=== PATIENT | male | born 1985 | race Caucasian/White ===

== ENCOUNTER 2018-02-11 19:59 | Emergency (ER) | payer SELFPAY ==
--- NOTE | 2018-02-11 20:27 | EDM.PDOC ---
ED HPI GENERAL MEDICAL PROBLEM - General Chief Complaint: ENT Problem Stated Complaint: EAR PAIN Time Seen by Provider: 02/11/18 20:14 Source of Information: Reports: Patient History Limitations: Reports: No Limitations - History of Present Illness INITIAL COMMENTS - FREE TEXT/NARRATIVE: The patient presents with left ear pain. He was putting a Q-tip in his ear yesterday and he felt pain after that. He has continued to have pain. He has no fever or chills. He has no sore throat or cough. Onset: Sudden Duration: Day(s): (Yesterday) Location: Reports: Other (Left ear) Quality: Reports: Sharp Severity: Moderate Improves with: Reports: None Worsens with: Reports: None Associated Symptoms: Reports: No Other Symptoms Left Ear Pain Score (Numeric/FACES): 3 - Related Data Allergies Allergy/AdvReac Type Severity Reaction Status Date / Time No Known Allergies Allergy Verified 02/11/18 20:15 Home Meds: Home Meds Ofloxacin 10 drop EARLF DAILY #20 ml 02/11/18 [Rx] Past Medical History - Past Health History Medical/Surgical History: Denies Medical/Surgical History Social & Family History - Tobacco Use Smoking Status *Q: Never Smoker - Caffeine Use Caffeine Use: Reports: Coffee - Recreational Drug Use Recreational Drug Use: No ED ROS ENT - Review of Systems Review Of Systems: See Below Constitutional: Reports: No Symptoms HEENT: Reports: Ear Pain (Left) Respiratory: Reports: No Symptoms Cardiovascular: Reports: No Symptoms Endocrine: Reports: No Symptoms GI/Abdominal: Reports: No Symptoms ED EXAM, ENT - Physical Exam Exam: See Below Exam Limited By: No Limitations General Appearance: Alert, No Apparent Distress Ears: Other (Mild pain upon palption to the front of the ear. Moderate edema to the ear canal with erythema and some drainage.) Course - Vital Signs Last Recorded V/S: Last Vital Signs Temp 99.6 F 02/11/18 20:13 Pulse 103 H 02/11/18 20:13 Resp 18 02/11/18 20:13 BP 137/78 02/11/18 20:13 Pulse Ox 95 02/11/18 20:13 Departure - Departure Time of Disposition: 20:25 Disposition: Home, Self-Care 01 Condition: Good Clinical Impression: Otitis externa Qualifiers: Otitis externa type: unspecified type Chronicity: acute Laterality: left Qualified Code(s): H60.502 - Unspecified acute noninfective otitis externa, left ear - Discharge Information *PRESCRIPTION DRUG MONITORING PROGRAM REVIEWED*: No *COPY OF PRESCRIPTION DRUG MONITORING REPORT IN PATIENT SPRING: No Prescriptions: Ofloxacin 10 drop EARLF DAILY #20 ml Instructions: Ear Drops, Adult, Otitis Externa, [id number] Referrals: PCP,None [Primary Care Provider] - Radha Mariano PA-C [Physician Temporary Data Entry Clerk] - 1 Week Additional Instructions: Put 10 drops in the left ear daily. Put the drops in your ear while laying on your side and stay there for about 10 minutes to let if go into your ear. Take tylenol or motrin for pain. Please return if you are worse.
== END 2018-02-11 20:34 | disposition home or self-care (01) ==
LOC: JD.ED 19:59
DX: H60.502 Unspecified acute noninfective otitis externa, left ear (principal)
CPT/HCPCS: 99283

== ENCOUNTER 2019-11-25 19:18 | Emergency (ER) | payer SELFPAY ==
[2019-11-25] MEDS ORDERED: Dexamethasone 10 MG/ML SDV IM ONE (19:55)
[2019-11-25] MEDS ORDERED: HYDROmorphone 0.5 MG/0.5 ML Syringe IM ONE (19:55)
--- NOTE | 2019-11-25 20:00 | EDM.PDOC ---
ED HPI GENERAL MEDICAL PROBLEM - General Chief Complaint: Lower Extremity Injury/Pain Stated Complaint: right foot pain Time Seen by Provider: 11/25/19 19:30 Source of Information: Reports: Patient, RN Notes Reviewed History Limitations: Reports: No Limitations - History of Present Illness INITIAL COMMENTS - FREE TEXT/NARRATIVE: Patient is a 34-year-old male who presents to the ED for evaluation of his right foot pain. Patient states that he was at work, but he is not sure if he was bitten by anything or got injured at work somehow. He denies any trauma to the area he did not drop any sort of equipment on his foot. Patient notes that the foot just became red, swollen, and warm to the touch. Patient's not felt pain like this before ever, does not have a history of gout. He did take 4 tablets of Tylenol this morning for pain management, but this did not seem to help much. He states it is very difficult to move his toes due to the swelling in his foot, but denies any numbness or tingling distal to the injury. Patient denies any other past medical history, and denies any other sick-like symptoms, fever/chills, cough/shortness of breath, nausea/vomiting/diarrhea. Right Feet Pain Score (Numeric/FACES): 6 - Related Data Allergies Allergy/AdvReac Type Severity Reaction Status Date / Time No Known Allergies Allergy Verified 11/25/19 19:31 Home Meds: Home Meds Acetaminophen/oxyCODONE [Percocet 325-5 MG] 1 each PO Q6H PRN #20 tab 11/25/19 [Rx] predniSONE 20 mg PO ASDIRECTED #15 tab 11/25/19 [Rx] Past Medical History - Past Health History Medical/Surgical History: Denies Medical/Surgical History Social & Family History - Tobacco Use Smoking Status *Q: Never Smoker - Caffeine Use Caffeine Use: Reports: Coffee - Recreational Drug Use Recreational Drug Use: No Review of Systems - Review of Systems Review Of Systems: Comprehensive ROS is negative, except as noted in HPI. ED EXAM, GENERAL - Physical Exam Exam: See Below Exam Limited By: No Limitations General Appearance: Alert, WD/WN, No Apparent Distress Respiratory/Chest: No Respiratory Distress, Lungs Clear, Normal Breath Sounds, No Accessory Muscle Use, Chest Non-Tender Cardiovascular: Normal Peripheral Pulses, Regular Rate, Rhythm, No Murmur GI/Abdominal: Normal Bowel Sounds, Soft, Non-Tender, No Distention, No Mass Extremities: Normal Capillary Refill, Limited Range of Motion (of toes on right food d/t dorsal swelling), Increased Warmth (to dorsum of right foot), Redness (to dorsum of right foot), Other (tenderness to dorsum of right foot) Neurological: Alert, Oriented, Normal Cognition, No Motor/Sensory Deficits Psychiatric: Normal Affect, Normal Mood Skin Exam: Warm, Dry, Intact, No Rash, Erythema (to dorsum of right foot, this area does appear to be inflamed, tender and warm to the touch. There are no areas that look to appear like an insect bite or central punctation.) Course - Vital Signs Last Recorded V/S: Last Vital Signs Temp 97.8 F 11/25/19 19:29 Pulse 94 11/25/19 19:29 Resp 16 11/25/19 19:29 BP 151/87 H 11/25/19 19:29 Pulse Ox 94 L 11/25/19 19:29 - Orders/Labs/Meds Labs: Laboratory Tests 11/25/19 11/25/19 Range/Units 20:03 20:03 WBC 13.04 H (4.23-9.07) K/mm3 RBC 4.95 (4.63-6.08) M/mm3 Hgb 14.2 (13.7-17.5) gm/dl Hct 43.1 (40.1-51.0) % MCV 87.1 (79.0-92.2) fl MCH 28.7 (25.7-32.2) pg MCHC 32.9 (32.2-35.5) g/dl RDW Std Deviation 46.9 H (35.1-43.9) fL Plt Count 262 (163-337) K/mm3 MPV 10.6 (9.4-12.3) fl Neut % (Auto) 70.6 H (34.0-67.9) % Lymph % (Auto) 21.5 L (21.8-53.1) % [place] % (Auto) 6.5 (5.3-12.2) % Eos % (Auto) 1.0 (0.8-7.0) Baso % (Auto) 0.2 (0.1-1.2) % Neut # (Auto) 9.21 H (1.78-5.38) K/mm3 Lymph # (Auto) 2.81 (1.32-3.57) K/mm3 [place] # (Auto) 0.85 H (0.30-0.82) K/mm3 Eos # (Auto) 0.13 (0.04-0.54) K/mm3 Baso # (Auto) 0.02 (0.01-0.08) K/mm3 Sodium 139 (136-145) mEq/L Potassium 3.6 (3.5-5.1) mEq/L Chloride 104 (98-107) mEq/L Carbon Dioxide 25 (21-32) mEq/L Anion Gap 13.6 (5-15) BUN 13 (7-18) mg/dL Creatinine 1.1 (0.7-1.3) mg/dL Est Cr Clr Drug Dosing 84.58 mL/min Estimated GFR (MDRD) > 60 (>60) mL/min BUN/Creatinine Ratio 11.8 L (14-18) Glucose 108 H (74-106) mg/dL Uric Acid 6.7 (3.5-7.2) mg/dL Calcium 9.0 (8.5-10.1) mg/dL Total Bilirubin 0.5 (0.2-1.0) mg/dL AST 18 (15-37) U/L ALT 40 (16-63) U/L Alkaline Phosphatase 108 (46-116) U/L Total Protein 8.1 (6.4-8.2) g/dl Albumin 3.8 (3.4-5.0) g/dl Globulin 4.3 gm/dL Albumin/Globulin Ratio 0.9 L (1-2) Meds: Medications Discontinued Medications Generic Name Dose Route Start Last Admin Trade Name Freq PRN Reason Stop Dose Admin Dexamethasone 10 mg 11/25/19 19:55 11/25/19 20:07 Dexamethasone IM 11/25/19 19:56 10 mg ONETIME ONE Administration Hydromorphone HCl 0.5 mg 11/25/19 19:55 11/25/19 20:07 Dilaudid IM 11/25/19 19:56 0.5 mg ONETIME ONE Administration - Re-Assessments/Exams Free Text/Narrative Re-Assessment/Exam: 07/02/20 20:00 Patient presents to the ED for evaluation of his right foot pain. Due to the sudden onset of this, highly suggestive of gout, but he is worried about infection at this time and does request some labs, so we will get a uric acid a CBC and a CMP for further evaluation. Patient will be given IM Dilaudid and IM dexamethasone for initial management. 11/25/19 20:40 Patient's white blood cell count is mildly elevated at 13.04 with 70% neutrophils. On auto differential uric acid is within normal limits at 6.7, metabolic panel is unremarkable. Due to the sudden onset of this, the amount of swelling and pain the patient is having I do believe the clinical course is more consistent with gout, patient will be given a prednisone taper, and some pain medication, with the strict instructions to follow-up with another provider if things are not getting much better in a day or 2 or if the redness starts spreading up his leg. Departure - Departure Time of Disposition: 20:43 Disposition: Home, Self-Care 01 Condition: Good Clinical Impression: Gout attack Qualifiers: Gout site: foot Gout etiology: unspecified cause Laterality: right Qualified Code(s): M10.9 - Gout, unspecified - Discharge Information *PRESCRIPTION DRUG MONITORING PROGRAM REVIEWED*: Yes *COPY OF PRESCRIPTION DRUG MONITORING REPORT IN PATIENT SPRING: No Instructions: Low-Purine Eating Plan Referrals: PCP,None [Primary Care Provider] - Forms: ED Department Discharge Additional Instructions: You were evaluated in the ER today regarding your right foot pain. This is consistent with a clinical course of gout, you have been given some pain meds and anti-inflammatories in the ER and this did seem to help provide pretty good relief of your symptoms at tonight's visit. You will be started on prednisone, and a pain medication, please take the prednisone as directed. You were given a prescription for a strong pain medication, oxycodone/acetaminophen 5/325, please take 1 tab every 6 hours as needed for pain not relieved by Tylenol or ibuprofen alone. Please note this medication does contain Tylenol in it, so do not take more than 4000 mg in a 24-hour time span. These medications can be addictive, so please take as few as possible to achieve adequate pain control. These meds can also be quite constipating, recommend that you increase your oral fluid intake and take a stool softener like MiraLAX while taking these medications. Do not drive while taking this medication. If your symptoms do not seem to be getting much better in roughly 72 hours or the redness starts spreading up your leg rather than getting better as expected, recommend you have the area reassessed by another care provider. There is no sign of a bacterial infection made evident by tonight's visit. Please return to the ER at any time if your symptoms change or worsen. Sepsis Event Note (ED) - Evaluation Sepsis Screening Result: No Definite Risk - Focused Exam Vital Signs: Vital Signs Temp Pulse Resp BP Pulse Ox 11/25/19 19:29 97.8 F 94 16 151/87 H 94 L
== END 2019-11-25 20:57 | disposition home or self-care (01) ==
LOC: JD.ED 19:18
DX: M10.9 Gout, unspecified (principal)
CPT/HCPCS: 36415; 80053; 84550; 85025; 96372; 99283; J1100; J1170

== ENCOUNTER 2019-11-29 16:06 | Inpatient (IN) | payer SELFPAY ==
--- NOTE | 2019-11-29 16:20 | EDM.PDOC ---
ED HPI GENERAL MEDICAL PROBLEM - General Chief Complaint: Lower Extremity Injury/Pain Stated Complaint: RT FOOT SWOLLEN AND 1 TOE BLEEDING Time Seen by Provider: 11/29/19 16:19 Source of Information: Reports: Patient History Limitations: Reports: No Limitations - History of Present Illness INITIAL COMMENTS - FREE TEXT/NARRATIVE: Patient is an unfortunate 34-year-old male who presents emergency department today with complaint of pain swelling and tenderness to his right foot. Patient reports that symptoms started 5 days ago he was seen here 4 days ago for same at which time the patient was diagnosed with gout. Patient at that time had a WBC of 13,000, patient reports he has had increasing pain and swelling to the his right foot he has erythema over the dorsum of his right foot and he has purulent drainage between the third and fourth toes in the interdigital space which is foul-smelling at this time, patient reports he does not know if he was stung by an insect but denies any trauma no fever no chills no cough no congestion no shortness of breath patient reports he has pain at rest pain is worse with palpation or ambulation improves with rest but never alleviates Right Foot Pain Score (Numeric/FACES): 9 - Related Data Allergies Allergy/AdvReac Type Severity Reaction Status Date / Time No Known Allergies Allergy Verified 11/29/19 16:19 Home Meds: Home Meds Acetaminophen/oxyCODONE [Percocet 325-5 MG] 1 each PO Q6H PRN #20 tab 11/25/19 [Rx] predniSONE 20 mg PO ASDIRECTED #15 tab 11/25/19 [Rx] Past Medical History - Past Health History Medical/Surgical History: Denies Medical/Surgical History Social & Family History - Caffeine Use Caffeine Use: Reports: Coffee Review of Systems - Review of Systems Review Of Systems: See Below Constitutional: Denies: Chills, Fever Musculoskeletal: Reports: Foot Pain, Other (swelling erythema) ED EXAM, GENERAL - Physical Exam Exam: See Below Exam Limited By: No Limitations General Appearance: Alert, WD/WN, Moderate Distress Ears: Normal External Exam, Normal Canal, Hearing Grossly Normal, Normal TMs Head: Atraumatic, Normocephalic Neck: Normal Inspection, Supple, Non-Tender, Full Range of Motion Respiratory/Chest: No Respiratory Distress, Lungs Clear, Normal Breath Sounds, No Accessory Muscle Use, Chest Non-Tender Cardiovascular: Normal Peripheral Pulses, Regular Rate, Rhythm, No Edema, No Gallop, No JVD, No Murmur, No Rub GI/Abdominal: Normal Bowel Sounds, Soft, Non-Tender, No Organomegaly, No Distention, No Abnormal Bruit, No Mass Back Exam: Normal Inspection, Full Range of Motion, NT Extremities: Other (Patient has moderate erythema over the dorsum of his right foot that extends to his midfoot he has) Course - Vital Signs Last Recorded V/S: Last Vital Signs Temp 97.7 F 11/29/19 16:17 Pulse 69 11/29/19 16:17 Resp 16 11/29/19 16:17 BP 143/98 H 11/29/19 16:17 Pulse Ox 99 11/29/19 16:17 - Orders/Labs/Meds Orders: Active Orders 24 hr Category Date Time Status Foot Comp Min 3V Rt [CR] Stat Exams 11/29/19 17:22 Taken CBC WITH AUTO DIFF [HEME] Stat Lab 11/29/19 16:52 Results CULTURE ANAEROBIC + SMEAR [RM] Routine Lab 11/29/19 16:15 Received CULTURE BLOOD [BC] Stat Lab 11/29/19 16:52 Received CULTURE BLOOD [BC] Stat Lab 11/29/19 17:05 Received UA RFX LUCIANO AND CULT IF INDIC [URIN] Stat Lab 11/29/19 16:25 Ordered Sodium Chloride 0.9% [Saline Flush] Med 11/29/19 16:25 Active 10 ml FLUSH ASDIRECTED PRN Blood Culture x2 Reflex Set [OM.PC] Stat Oth 11/29/19 16:25 Ordered Saline Lock Insert [OM.PC] Stat Oth 11/29/19 16:25 Ordered Medication Orders Sodium Chloride (Saline Flush) 10 ml FLUSH ASDIRECTED PRN PRN Reason: Keep Vein Open Last Admin: 11/29/19 16:58 Dose: 10 ml Documented by: YANNA Labs: Laboratory Tests 11/29/19 11/29/19 11/29/19 Range/Units 16:52 16:52 17:05 WBC 18.85 H (4.23-9.07) K/mm3 RBC 5.33 (4.63-6.08) M/mm3 Hgb 15.0 (13.7-17.5) gm/dl Hct 46.9 (40.1-51.0) % MCV 88.0 (79.0-92.2) fl MCH 28.1 (25.7-32.2) pg MCHC 32.0 L (32.2-35.5) g/dl RDW Std Deviation 48.0 H (35.1-43.9) fL Plt Count 330 (163-337) K/mm3 MPV 10.8 (9.4-12.3) fl Neut % (Auto) 52.9 (34.0-67.9) % Lymph % (Auto) 39.1 (21.8-53.1) % [place] % (Auto) 6.9 (5.3-12.2) % Eos % (Auto) 0.5 L (0.8-7.0) Baso % (Auto) 0.2 (0.1-1.2) % Neut # (Auto) 9.97 H (1.78-5.38) K/mm3 Lymph # (Auto) 7.37 H (1.32-3.57) K/mm3 [place] # (Auto) 1.31 H (0.30-0.82) K/mm3 Eos # (Auto) 0.09 (0.04-0.54) K/mm3 Baso # (Auto) 0.03 (0.01-0.08) K/mm3 Sodium 138 (136-145) mEq/L Potassium 3.6 (3.5-5.1) mEq/L Chloride 101 (98-107) mEq/L Carbon Dioxide 29 (21-32) mEq/L Anion Gap 11.6 (5-15) BUN 11 (7-18) mg/dL Creatinine 0.9 (0.7-1.3) mg/dL Est Cr Clr Drug Dosing TNP Estimated GFR (MDRD) > 60 (>60) mL/min BUN/Creatinine Ratio 12.2 L (14-18) Glucose 87 (74-106) mg/dL Lactic Acid 0.9 (0.4-2.0) mmol/L Calcium 8.7 (8.5-10.1) mg/dL Total Bilirubin 0.2 (0.2-1.0) mg/dL AST 17 (15-37) U/L ALT 50 (16-63) U/L Alkaline Phosphatase 100 (46-116) U/L Total Protein 8.2 (6.4-8.2) g/dl Albumin 3.5 (3.4-5.0) g/dl Globulin 4.7 gm/dL Albumin/Globulin Ratio 0.7 L (1-2) Meds: Medications Generic Name Dose Route Start Last Admin Trade Name Freq PRN Reason Stop Dose Admin Sodium Chloride 10 ml 11/29/19 16:25 11/29/19 16:58 Saline Flush FLUSH 10 ml ASDIRECTED PRN Administration Keep Vein Open Discontinued Medications Generic Name Dose Route Start Last Admin Trade Name Freq PRN Reason Stop Dose Admin Piperacillin Sod/Tazobactam 100 mls @ 200 mls/hr 11/29/19 17:28 11/29/19 17:44 Sod 4.5 gm/ Sodium Chloride IV 11/29/19 17:57 200 mls/hr ONETIME ONE Administration - Re-Assessments/Exams Free Text/Narrative Re-Assessment/Exam: 11/29/19 18:[address] Aranda excepts patient into observation status Departure - Departure Time of Disposition: 18:53 Disposition: Refer to Observation Clinical Impression: Cellulitis of right foot - Discharge Information Referrals: PCP,None [Primary Care Provider] - Forms: ED Department Discharge Sepsis Event Note (ED) - Focused Exam Vital Signs: Vital Signs Temp Pulse Resp BP Pulse Ox 11/29/19 16:17 97.7 F 69 16 143/98 H 99 - My Orders Last 24 Hours: My Active Orders 11/29/19 16:15 CULTURE ANAEROBIC + SMEAR [RM] Routine 11/29/19 16:25 UA RFX LUCIANO AND CULT IF INDIC [URIN] Stat Sodium Chloride 0.9% [Saline Flush] 10 ml FLUSH ASDIRECTED PRN Blood Culture x2 Reflex Set [OM.PC] Stat Saline Lock Insert [OM.PC] Stat 11/29/19 16:52 CBC WITH AUTO DIFF [HEME] Stat CULTURE BLOOD [BC] Stat 11/29/19 17:05 CULTURE BLOOD [BC] Stat 11/29/19 17:22 Foot Comp Min 3V Rt [CR] Stat - Assessment/Plan Last 24 Hours: My Active Orders 11/29/19 16:15 CULTURE ANAEROBIC + SMEAR [RM] Routine 11/29/19 16:25 UA RFX LUCIANO AND CULT IF INDIC [URIN] Stat Sodium Chloride 0.9% [Saline Flush] 10 ml FLUSH ASDIRECTED PRN Blood Culture x2 Reflex Set [OM.PC] Stat Saline Lock Insert [OM.PC] Stat 11/29/19 16:52 CBC WITH AUTO DIFF [HEME] Stat CULTURE BLOOD [BC] Stat 11/29/19 17:05 CULTURE BLOOD [BC] Stat 11/29/19 17:22 Foot Comp Min 3V Rt [CR] Stat
[2019-11-29] MEDS ORDERED: Sodium Chloride 0.9% 10 ML Syringe FLUSH PRN (16:25)
[2019-11-29] MEDS ORDERED: Piperacillin/Tazobactam 4.5 GM in Sodium Chloride 0.9% 100 ML IV ONE (17:28)
[2019-11-29] MEDS ORDERED: Diphtheria,Pertussis(Acell),Tetanus Vaccine 0.5 ML Syringe IM ONE (18:59)
--- NOTE | 2019-11-29 19:13 | PCM.HP.2 ---
H&P History of Present Illness - General Date of Service: 11/29/19 Admit Problem/Dx: cellulitis rt foot. Source of Information: Patient, EMS, EMS Notes Reviewed, Family - History of Present Illness Onset of Symptoms: Reports: Gradual Symptom Onset Date: 11/24/19 Duration of Symptoms: Reports: Day(s): (5) Location: Reports: Upper Extremity, Right, Lower Extremity, Right Quality: Reports: Sharp Improves with: Reports: None, Rest Worsens with: Reports: Movement Context: Reports: Other (work) Associated Symptoms: Reports: No Other Symptoms, Cough. Denies: Confusion, Diaphoresis, Fever/Chills Right Foot Pain Score (Numeric/FACES): 9 - Related Data Allergies/Adverse Reactions: Allergies Allergy/AdvReac Type Severity Reaction Status Date / Time No Known Allergies Allergy Verified 11/29/19 16:19 Home Medications: Home Meds Acetaminophen/oxyCODONE [Percocet 325-5 MG] 1 each PO Q6H PRN #20 tab 11/25/19 [Rx] predniSONE 20 mg PO ASDIRECTED #15 tab 11/25/19 [Rx] Past Medical History - Past Health History Medical/Surgical History: Denies Medical/Surgical History Social & Family History - Tobacco Use Smoking Status *Q: Never Smoker - Caffeine Use Caffeine Use: Reports: Coffee - Recreational Drug Use Recreational Drug Use: No H&P Review of Systems - Review of Systems: Review Of Systems: See Below General: Reports: No Symptoms HEENT: Reports: No Symptoms Pulmonary: Reports: Cough Cardiovascular: Reports: No Symptoms Gastrointestinal: Reports: No Symptoms Genitourinary: Reports: No Symptoms Musculoskeletal: Reports: No Symptoms Skin: Reports: Other (discharge between 3rd and 4th toe space/ foul odor) Psychiatric: Reports: No Symptoms Neurological: Reports: No Symptoms Hematologic/Lymphatic: Reports: No Symptoms Immunologic: Reports: No Symptoms Exam - Exam Exam: See Below - Vital Signs Vital Signs: Last Vital Signs Temp 36.5 C 11/29/19 16:17 Pulse 69 11/29/19 16:17 Resp 16 11/29/19 16:17 BP 143/98 H 11/29/19 16:17 Pulse Ox 99 11/29/19 16:17 - Exam General: Alert, Oriented, 4 HEENT: PERRLA, Hearing Intact, Mucosa Moist & [place], Nares Patent, Normal Nasal Septum, Posterior Pharynx Clear, Conjunctiva Clear, EOMI, EACs Clear, TMs Clear Neck: Supple, Trachea Midline, 2 Lungs: Clear to Auscultation, Normal Respiratory Effort Cardiovascular: Regular Rate, Regular Rhythm GI/Abdominal Exam: Normal Bowel Sounds, Soft, Non-Tender, No Organomegaly, No Distention, No Abnormal Bruit, No Mass, Pelvis Stable (Male) Exam: No Hernia, Normal Inspection, Normal Prostate, Circumcised Rectal (Males) Exam: Deferred. No: Normal Exam, Normal Rectal Tone, Prostate Normal Back Exam: Normal Inspection, Full Range of Motion, NT Extremities: Normal Inspection, Normal Range of Motion, Non-Tender, No Pedal Edema, Normal Capillary Refill, Pedal Edema, Leg Pain, Increased Warmth, Redness, Other (exquisite tenderness over dorsum of foot no bubbly dc form tissues no crepatation no lymphadnopathy ) Peripheral Pulses: 1+: Carotid (L), Carotid (R) Skin: Warm, Dry, Intact Neurological: Cranial Nerves Intact, Reflexes Equal Bilateral Neuro Extensive - Mental Status: Alert, Oriented x3, Normal Mood/Affect, Normal Cognition Neuro Extensive - Motor, Sensory, Reflexes: CN II-XII Intact, Normal Gait, Normal Reflexes Psychiatric: Alert, Normal Affect, Normal Mood - Patient Data Lab Results Last 24 hrs: Laboratory Results - last 24 hr 11/29/19 11/29/19 11/29/19 Range/Units 16:52 16:52 17:05 WBC 18.85 H (4.23-9.07) K/mm3 RBC 5.33 (4.63-6.08) M/mm3 Hgb 15.0 (13.7-17.5) gm/dl Hct 46.9 (40.1-51.0) % MCV 88.0 (79.0-92.2) fl MCH 28.1 (25.7-32.2) pg MCHC 32.0 L (32.2-35.5) g/dl RDW Std Deviation 48.0 H (35.1-43.9) fL Plt Count 330 (163-337) K/mm3 MPV 10.8 (9.4-12.3) fl Neut % (Auto) 52.9 (34.0-67.9) % Lymph % (Auto) 39.1 (21.8-53.1) % [place] % (Auto) 6.9 (5.3-12.2) % Eos % (Auto) 0.5 L (0.8-7.0) Baso % (Auto) 0.2 (0.1-1.2) % Neut # (Auto) 9.97 H (1.78-5.38) K/mm3 Lymph # (Auto) 7.37 H (1.32-3.57) K/mm3 [place] # (Auto) 1.31 H (0.30-0.82) K/mm3 Eos # (Auto) 0.09 (0.04-0.54) K/mm3 Baso # (Auto) 0.03 (0.01-0.08) K/mm3 Manual Slide Review Abnormal smear Sodium 138 (136-145) mEq/L Potassium 3.6 (3.5-5.1) mEq/L Chloride 101 (98-107) mEq/L Carbon Dioxide 29 (21-32) mEq/L Anion Gap 11.6 (5-15) BUN 11 (7-18) mg/dL Creatinine 0.9 (0.7-1.3) mg/dL Est Cr Clr Drug Dosing TNP Estimated GFR (MDRD) > 60 (>60) mL/min BUN/Creatinine Ratio 12.2 L (14-18) Glucose 87 (74-106) mg/dL Lactic Acid 0.9 (0.4-2.0) mmol/L Calcium 8.7 (8.5-10.1) mg/dL Total Bilirubin 0.2 (0.2-1.0) mg/dL AST 17 (15-37) U/L ALT 50 (16-63) U/L Alkaline Phosphatase 100 (46-116) U/L Total Protein 8.2 (6.4-8.2) g/dl Albumin 3.5 (3.4-5.0) g/dl Globulin 4.7 gm/dL Albumin/Globulin Ratio 0.7 L (1-2) Result Diagrams: 11/29/19 16:52 11/29/19 16:52 Sepsis Event Note - Evaluation Sepsis Screening Result: No Definite Risk - Focused Exam Vital Signs: Vital Signs Temp Pulse Resp BP Pulse Ox 11/29/19 16:17 36.5 C 69 16 143/98 H 99 Date Exam was Performed: 11/29/19 Time Exam was Performed: 19:07 - Problem List (1) Cellulitis of right foot SNOMED Code(s): 558096749 ICD Code: L03.115 - CELLULITIS OF RIGHT LOWER LIMB Status: Acute Priority: High Current Visit: Yes Onset Date: ~11/29/19 Problem Details: admitted with 5 day hx of pain and swelling /redness with increasing infection signs /// start broad spectrum antibiotics// xrays no gas formation ./// no trauma and patient hx unclear but started after wor kayla and wearing boots/ drainage form web space (3rd) and cracked macerated skin. orthopedicsa nd mri of foot in am / td given Problem List Initiated/Reviewed/Updated: Yes Orders Last 24hrs: Active Orders 24 hr Category Date Time Status Vaccines to be Administered [RC] PER UNIT ROUTINE Care 11/29/19 19:00 Active Foot Comp Min 3V Rt [CR] Stat Exams 11/29/19 17:22 Taken CULTURE ANAEROBIC + SMEAR [RM] Routine Lab 11/29/19 16:15 Received CULTURE BLOOD [BC] Stat Lab 11/29/19 16:52 Received CULTURE BLOOD [BC] Stat Lab 11/29/19 17:05 Received UA RFX LUCIANO AND CULT IF INDIC [URIN] Stat Lab 11/29/19 16:25 Ordered Sodium Chloride 0.9% [Saline Flush] Med 11/29/19 16:25 Active 10 ml FLUSH ASDIRECTED PRN Vancomycin [Vancocin] 1 gm Med 11/29/19 18:52 Active Sodium Chloride 0.9% [Normal Saline (AdvBag)] 250 ml IV ONETIME Blood Culture x2 Reflex Set [OM.PC] Stat Oth 11/29/19 16:25 Ordered Saline Lock Insert [OM.PC] Stat Oth 11/29/19 16:25 Ordered Medication Orders Vancomycin HCl 1 gm/ Sodium (Chloride) 250 mls @ 250 mls/hr IV ONETIME ONE Stop: 11/29/19 19:51 Last Admin: 11/29/19 18:59 Dose: 250 mls/hr Documented by: YANNA Sodium Chloride (Saline Flush) 10 ml FLUSH ASDIRECTED PRN PRN Reason: Keep Vein Open Last Admin: 11/29/19 16:58 Dose: 10 ml Documented by: MORKJOR add zosyn pre pharmacy dosing Assessment/Plan Comment:: assess/plan rt foot cellulitis c severe foot pain cultures and gram stain sent and will need b.s. antibiotics and ortho consultation . mri ordered for am . i.v fluids and rule out bacteremia. tetanus vaccine given. pain control
[2019-11-29] MEDS ORDERED: Acetaminophen 325 MG Tab PO PRN (19:23)
[2019-11-29] MEDS: Acetaminophen/HYDROcodone 325-5 MG Tab PO PRN (20:27)
[2019-11-29] MEDS ORDERED: Enoxaparin 40 MG/0.4 ML Syringe SUBCUT SCH (21:00)
[2019-11-30] MEDS: Acetaminophen/HYDROcodone 325-5 MG Tab PO PRN ×5 (00:24→21:15)
[2019-11-30] MEDS: Piperacillin/Tazobactam 4.5 GM in Sodium Chloride 0.9% 100 ML IV SCH ×3 (00:24→17:18)
--- NOTE | 2019-11-30 06:54 | CR ---
Right foot: 4 views of the right foot were obtained. Comparison: No prior foot study is available. Soft tissue swelling seen dorsally. Small plantar spur is seen. Small spur noted at the attachment of the Achilles tendon to the calcaneus. Joint spaces are preserved. No acute fracture, dislocation or other bony abnormality is appreciated. Impression: 1. Soft tissue swelling. Small plantar spurs. 2. No acute bony abnormality is identified on right foot exam. Diagnostic code #2 This report was dictated in MDT
[2019-11-30] MEDS ORDERED: Gadobenate Dimeglumine 529 MG/ML 20 ML SDV IVPUSH ONE (08:05)
[2019-11-30] MEDS ORDERED: Sodium Chloride 0.9% 10 ML Syringe FLUSH SCH (08:15)
--- NOTE | 2019-11-30 09:16 | MR ---
MRI right foot (without and with intravenous contrast) Technique: T1 and fat suppressed inversion recovery sagittal; T2 fat suppressed, T2 and proton coronal; T1 and T2 fat suppressed axial; postcontrast T1 fat-suppressed axial, coronal and sagittal images of the right foot were obtained. Comparison: Prior right foot radiographic exam of 11/29/19. Findings: No discrete bone marrow edema is identified. No abnormal enhancement within the bones are identified. Diffuse soft tissue edema is seen. Diffuse soft tissue enhancement is seen. Impression: 1. Findings compatible with diffuse cellulitis. 2. Nothing definite is seen to indicate osteomyelitis at this time. Diagnostic code #3 This report was dictated in MDT
--- NOTE | 2019-11-30 11:35 | PCM.PN ---
- General Info Date of Service: 11/30/19 Admission Dx/Problem (Free Text): cellulitis rt foot. Subjective Update: 11/30/19 afebrile/vss 34 year old hisp.male with severe foot cellulitis with skin break on 3rd and 4th web spaces. cultures pending and start vancomycin and zosyn. day one p.e mod obesity rt foot less redness/ swelling moderate on forefoot and digits 2-5 discharge and pain in web spaces tenderness slightly better no streaks up leg. sensation normal / flat feet bilaterally . left foot has whitish material in web spaces . assess/plan cellulitis rt forefoot with skin breaks making staph / strep liely pathogens . pes planus. suspected source web spaces and fungal infection causing micro skin breaks . foot care to be reviewed / mri shows no osteo/pt to help debride. cont antibiotics and start fungal cream and diflucan . possible dc if responding well and stable/ cont antibiotics o.p boh Functional Status: Reports: Pain Controlled - Review of Systems General: Reports: No Symptoms, Other (pain) HEENT: Reports: No Symptoms Pulmonary: Reports: No Symptoms Cardiovascular: Reports: No Symptoms Gastrointestinal: Reports: No Symptoms Genitourinary: Reports: No Symptoms Musculoskeletal: Reports: No Symptoms Skin: Reports: No Symptoms, Other (cellultitis) Neurological: Reports: No Symptoms Psychiatric: Reports: No Symptoms - Patient Data Vitals - Most Recent: Last Vital Signs Temp 36.9 C 11/30/19 09:04 Pulse 74 11/30/19 09:04 Resp 20 11/30/19 09:04 BP 144/87 H 11/30/19 09:04 Pulse Ox 98 11/30/19 09:04 Weight - Most Recent: 107.365 kg I&O - Last 24 Hours: Intake & Output 11/29/19 11/30/19 11/30/19 22:59 06:59 14:59 Intake Total 200 Output Total 530 Balance -330 Lab Results Last 24 Hours: Laboratory Results - last 24 hr 11/29/19 11/29/19 11/29/19 Range/Units 16:52 16:52 17:05 WBC 18.85 H (4.23-9.07) K/mm3 RBC 5.33 (4.63-6.08) M/mm3 Hgb 15.0 (13.7-17.5) gm/dl Hct 46.9 (40.1-51.0) % MCV 88.0 (79.0-92.2) fl MCH 28.1 (25.7-32.2) pg MCHC 32.0 L (32.2-35.5) g/dl RDW Std Deviation 48.0 H (35.1-43.9) fL Plt Count 330 (163-337) K/mm3 MPV 10.8 (9.4-12.3) fl Neut % (Auto) 52.9 (34.0-67.9) % Lymph % (Auto) 39.1 (21.8-53.1) % [place] % (Auto) 6.9 (5.3-12.2) % Eos % (Auto) 0.5 L (0.8-7.0) Baso % (Auto) 0.2 (0.1-1.2) % Neut # (Auto) 9.97 H (1.78-5.38) K/mm3 Lymph # (Auto) 7.37 H (1.32-3.57) K/mm3 [place] # (Auto) 1.31 H (0.30-0.82) K/mm3 Eos # (Auto) 0.09 (0.04-0.54) K/mm3 Baso # (Auto) 0.03 (0.01-0.08) K/mm3 Manual Slide Review Abnormal smear Sodium 138 (136-145) mEq/L Potassium 3.6 (3.5-5.1) mEq/L Chloride 101 (98-107) mEq/L Carbon Dioxide 29 (21-32) mEq/L Anion Gap 11.6 (5-15) BUN 11 (7-18) mg/dL Creatinine 0.9 (0.7-1.3) mg/dL Est Cr Clr Drug Dosing TNP Estimated GFR (MDRD) > 60 (>60) mL/min BUN/Creatinine Ratio 12.2 L (14-18) Glucose 87 (74-106) mg/dL Lactic Acid 0.9 (0.4-2.0) mmol/L Calcium 8.7 (8.5-10.1) mg/dL Total Bilirubin 0.2 (0.2-1.0) mg/dL AST 17 (15-37) U/L ALT 50 (16-63) U/L Alkaline Phosphatase 100 (46-116) U/L Total Protein 8.2 (6.4-8.2) g/dl Albumin 3.5 (3.4-5.0) g/dl Globulin 4.7 gm/dL Albumin/Globulin Ratio 0.7 L (1-2) Urine Color (Yellow) Urine Appearance (Clear) Urine pH (5.0-8.0) Ur Specific [place] (1.005-1.030) Urine Protein (Negative) Urine Glucose (UA) (Negative) Urine Ketones (Negative) Urine Occult Blood (Negative) Urine Nitrite (Negative) Urine Bilirubin (Negative) Urine Urobilinogen (0.2-1.0) Ur Leukocyte Esterase (Negative) COVID-19 (CINDY) (NEGATIVE) 11/29/19 11/29/19 11/29/19 Range/Units 19:34 20:04 20:04 WBC 18.11 H (4.23-9.07) K/mm3 RBC 5.14 (4.63-6.08) M/mm3 Hgb 14.6 (13.7-17.5) gm/dl Hct 45.2 (40.1-51.0) % MCV 87.9 (79.0-92.2) fl MCH 28.4 (25.7-32.2) pg MCHC 32.3 (32.2-35.5) g/dl RDW Std Deviation 48.3 H (35.1-43.9) fL Plt Count 288 (163-337) K/mm3 MPV 10.6 (9.4-12.3) fl Neut % (Auto) 59.3 (34.0-67.9) % Lymph % (Auto) 32.2 (21.8-53.1) % [place] % (Auto) 7.5 (5.3-12.2) % Eos % (Auto) 0.4 L (0.8-7.0) Baso % (Auto) 0.2 (0.1-1.2) % Neut # (Auto) 10.73 H (1.78-5.38) K/mm3 Lymph # (Auto) 5.83 H (1.32-3.57) K/mm3 [place] # (Auto) 1.36 H (0.30-0.82) K/mm3 Eos # (Auto) 0.08 (0.04-0.54) K/mm3 Baso # (Auto) 0.04 (0.01-0.08) K/mm3 Manual Slide Review Abnormal smear Sodium 138 (136-145) mEq/L Potassium 4.0 (3.5-5.1) mEq/L Chloride 102 (98-107) mEq/L Carbon Dioxide 26 (21-32) mEq/L Anion Gap 14.0 (5-15) BUN 11 (7-18) mg/dL Creatinine 1.1 (0.7-1.3) mg/dL Est Cr Clr Drug Dosing 84.58 Estimated GFR (MDRD) > 60 (>60) mL/min BUN/Creatinine Ratio 10.0 L (14-18) Glucose 87 (74-106) mg/dL Lactic Acid (0.4-2.0) mmol/L Calcium 8.3 L (8.5-10.1) mg/dL Total Bilirubin (0.2-1.0) mg/dL AST (15-37) U/L ALT (16-63) U/L Alkaline Phosphatase (46-116) U/L Total Protein (6.4-8.2) g/dl Albumin (3.4-5.0) g/dl Globulin gm/dL Albumin/Globulin Ratio (1-2) Urine Color (Yellow) Urine Appearance (Clear) Urine pH (5.0-8.0) Ur Specific [place] (1.005-1.030) Urine Protein (Negative) Urine Glucose (UA) (Negative) Urine Ketones (Negative) Urine Occult Blood (Negative) Urine Nitrite (Negative) Urine Bilirubin (Negative) Urine Urobilinogen (0.2-1.0) Ur Leukocyte Esterase (Negative) COVID-19 (CINDY) Negative (NEGATIVE) 11/29/19 Range/Units 20:10 WBC (4.23-9.07) K/mm3 RBC (4.63-6.08) M/mm3 Hgb (13.7-17.5) gm/dl Hct (40.1-51.0) % MCV (79.0-92.2) fl MCH (25.7-32.2) pg MCHC (32.2-35.5) g/dl RDW Std Deviation (35.1-43.9) fL Plt Count (163-337) K/mm3 MPV (9.4-12.3) fl Neut % (Auto) (34.0-67.9) % Lymph % (Auto) (21.8-53.1) % [place] % (Auto) (5.3-12.2) % Eos % (Auto) (0.8-7.0) Baso % (Auto) (0.1-1.2) % Neut # (Auto) (1.78-5.38) K/mm3 Lymph # (Auto) (1.32-3.57) K/mm3 [place] # (Auto) (0.30-0.82) K/mm3 Eos # (Auto) (0.04-0.54) K/mm3 Baso # (Auto) (0.01-0.08) K/mm3 Manual Slide Review Sodium (136-145) mEq/L Potassium (3.5-5.1) mEq/L Chloride (98-107) mEq/L Carbon Dioxide (21-32) mEq/L Anion Gap (5-15) BUN (7-18) mg/dL Creatinine (0.7-1.3) mg/dL Est Cr Clr Drug Dosing Estimated GFR (MDRD) (>60) mL/min BUN/Creatinine Ratio (14-18) Glucose (74-106) mg/dL Lactic Acid (0.4-2.0) mmol/L Calcium (8.5-10.1) mg/dL Total Bilirubin (0.2-1.0) mg/dL AST (15-37) U/L ALT (16-63) U/L Alkaline Phosphatase (46-116) U/L Total Protein (6.4-8.2) g/dl Albumin (3.4-5.0) g/dl Globulin gm/dL Albumin/Globulin Ratio (1-2) Urine Color Yellow (Yellow) Urine Appearance Clear (Clear) Urine pH 6.0 (5.0-8.0) Ur Specific [place] 1.020 (1.005-1.030) Urine Protein Negative (Negative) Urine Glucose (UA) Negative (Negative) Urine Ketones Negative (Negative) Urine Occult Blood Negative (Negative) Urine Nitrite Negative (Negative) Urine Bilirubin Negative (Negative) Urine Urobilinogen 0.2 (0.2-1.0) Ur Leukocyte Esterase Negative (Negative) COVID-19 (CINDY) (NEGATIVE) Med Orders - Current: Current Medications Acetaminophen (Tylenol) 650 mg PO Q4H PRN PRN Reason: Pain (Mild 1-3)/fever Hydrocodone Bitart/Acetaminophen ([place] 325-5 Mg) 2 tab PO Q4H PRN PRN Reason: Pain (moderate 4-6) Last Admin: 11/30/19 09:12 Dose: 2 tab Documented by: Enoxaparin Sodium (Lovenox) 40 mg SUBCUT BEDTIME MAXIMO Piperacillin Sod/Tazobactam (Sod 4.5 gm/ Sodium Chloride) 100 mls @ 25 mls/hr IV Q8H MAXIMO Last Admin: 11/30/19 09:06 Dose: 25 mls/hr Documented by: Vancomycin HCl 1 gm/Vancomycin HCl 250 mg/ Sodium Chloride 250 mls @ 166.667 mls/hr IV Q8H MAXIMO Sodium Chloride (Saline Flush) 10 ml FLUSH ASDIRECTED PRN PRN Reason: Keep Vein Open Last Admin: 11/29/19 16:58 Dose: 10 ml Documented by: Sodium Chloride (Saline Flush) 20 ml FLUSH ASDIRECTED MAXIMO Stop: 11/30/19 12:00 Last Admin: 11/30/19 08:41 Dose: 20 ml Documented by: Vancomycin HCl (Pharmacy To Dose - Vancomycin) 1 dose .XX ASDIRECTED PRN PRN Reason: RX TO DOSE VANCO Discontinued Medications Diphtheria/Tetanus/Acell Pertussis (Adacel) 0.5 ml IM .ONCE ONE Stop: 11/29/19 19:00 Last Admin: 11/29/19 19:08 Dose: 0.5 ml Documented by: Enoxaparin Sodium (Lovenox) 40 mg SUBCUT BEDTIME MAXIMO Stop: 11/29/19 21:01 Last Admin: 11/29/19 21:42 Dose: 40 mg Documented by: Gadobenate Dimeglumine (Multihance) 20 ml IVPUSH ONETIME ONE Stop: 11/30/19 08:06 Last Admin: 11/30/19 08:41 Dose: 20 ml Documented by: Piperacillin Sod/Tazobactam (Sod 4.5 gm/ Sodium Chloride) 100 mls @ 200 mls/hr IV ONETIME ONE Stop: 11/29/19 17:57 Last Admin: 11/29/19 17:44 Dose: 200 mls/hr Documented by: Vancomycin HCl 1 gm/ Sodium (Chloride) 250 mls @ 250 mls/hr IV ONETIME ONE Stop: 11/29/19 19:51 Last Admin: 11/29/19 18:59 Dose: 250 mls/hr Documented by: Vancomycin HCl 1 gm/ Sodium (Chloride) 250 mls @ 250 mls/hr IV Q24H MAXIMO - Exam General: Alert, Oriented HEENT: Pupils Equal, Pupils Reactive, EOMI, Mucous Membr. Moist/[place] Neck: Supple Lungs: Clear to Auscultation, Normal Respiratory Effort Cardiovascular: Regular Rate, Regular Rhythm GI/Abdominal Exam: Normal Bowel Sounds, Soft, Non-Tender, No Organomegaly, No Distention, No Abnormal Bruit, No Mass, Pelvis Stable (Male) Exam: No Hernia, Normal Inspection, Normal Prostate, Circumcised Back Exam: Normal Inspection, Full Range of Motion Extremities: Normal Inspection, Normal Range of Motion, Non-Tender, No Pedal Edema, Normal Capillary Refill Skin: Warm, Dry, Intact, Other (web space cracking and discharge ) Wound/Incisions: Healing Well Neurological: No New Focal Deficit Psy/Mental Status: Alert, Normal Affect, Normal Mood Sepsis Event Note - Evaluation Sepsis Screening Result: No Definite Risk Current Stage of Sepsis: Ruled Out Reason for Ruling Out Sepsis: cellultis Possible Source of Sepsis: Skin/Soft Tissue - Focused Exam Vital Signs: Vital Signs Temp Pulse Resp BP Pulse Ox 11/30/19 09:04 36.9 C 74 20 144/87 H 98 11/30/19 04:35 37.1 C 73 16 130/79 98 11/30/19 00:28 36.7 C 67 16 127/71 99 Pulse Description: 2+ Normal Skin Exam (Focused Sepsis): Normal Turgor Date Exam was Performed: 11/30/19 Time Exam was Performed: 11:36 - Bedside Monitoring CVP Measures: Less than 8 Bedside Ultrasound Performed: No Passive Leg Raise/Fluid Bolus: Positive, Negative, Fluid Responsive, Not Fluid Responsive, Not Performed Date Bedside Monitoring was Performed: 11/30/19 Time Bedside Monitoring was Performed: 11:37 - Problem List & Annotations (1) Cellulitis of right foot SNOMED Code(s): 213260144 Code(s): L03.115 - CELLULITIS OF RIGHT LOWER LIMB Status: Acute Priority: High Current Visit: Yes Onset Date: ~11/29/19 Annotation/Comment:: admitted with 5 day hx of pain and swelling /redness with increasing infection signs /// start broad spectrum antibiotics// xrays no gas formation ./// no trauma and patient hx unclear but started after working and wearing boots/ drainage form web space (3rd) and cracked macerated skin. orthopedicsa nd mri of foot in am / td given (2) Pes planus of both feet SNOMED Code(s): 27862479 Code(s): M21.41 - FLAT FOOT [PES PLANUS] (ACQUIRED), RIGHT FOOT; M21.42 - FLAT FOOT [PES PLANUS] (ACQUIRED), LEFT FOOT Status: Acute Priority: Medium Current Visit: Yes Onset Date: ~11/30/19 (3) Fungal dermatitis SNOMED Code(s): 77667000 Code(s): B36.9 - SUPERFICIAL MYCOSIS, UNSPECIFIED Status: Acute Priority: Medium Current Visit: Yes Onset Date: ~11/29/19 - Problem List Review Problem List Initiated/Reviewed/Updated: Yes - My Orders Last 24 Hours: My Active Orders 11/29/19 19:23 Patient Status [ADT] Routine Bedrest Bathroom Privileges [RC] DAILY Oxygen Therapy [RC] PRN VTE/DVT Education [RC] BID Vital Signs [RC] 00,04,08,12,16,22 Consult to Case Management/[employer] Manager [CONS] Routine Consult to Customer Service Voice [CONS] Routine PT Evaluation and Treatment [CONS] Routine Acetaminophen [Tylenol] 650 mg PO Q4H PRN Acetaminophen/HYDROcodone [[place] 325-5 MG] 2 tab PO Q4H PRN Resuscitation Status Routine 11/30/19 01:00 Piperacillin/Tazobactam [Piperacil-Tazobact] 4.5 gm Sodium Chloride 0.9% [Normal Saline] 100 ml IV Q8H 11/30/19 Breakfast Regular Diet [DIET] 11/30/19 08:15 Sodium Chloride 0.9% [Saline Flush] 20 ml FLUSH ASDIRECTED 11/30/19 19:30 BASIC METABOLIC PANEL,BMP [CHEM] DAILY CBC WITH AUTO DIFF [HEME] DAILY 11/30/19 19:35 A1C [GLYCOSYLATED HEMOGLOBIN,HGBA1C] [CHEM] Stat 11/30/19 21:00 Enoxaparin [Lovenox] 40 mg SUBCUT BEDTIME 12/01/19 19:30 BASIC METABOLIC PANEL,BMP [CHEM] DAILY CBC WITH AUTO DIFF [HEME] DAILY 11/30/19 afebrile/vss 34 year old hisp.male with severe foot cellulitis with skin break on 3rd and 4th web spaces. cultures pending and start vancomycin and zosyn. day one p.e mod obesity rt foot less redness/ swelling moderate on forefoot and digits 2-5 discharge and pain in web spaces tenderness slightly better no streaks up leg. sensation normal / flat feet bilaterally . left foot has whitish material in web spaces . assess/plan cellulitis rt forefoot with skin breaks making staph / strep liely pathogens . pes planus. suspected source web spaces and fungal infection causing micro skin breaks . foot care to be reviewed / mri shows no osteo/pt to help debride. cont antibiotics and start fungal cream and diflucan . possible dc if responding well and stable/ cont antibiotics o.p boh - Plan Plan:: assess/plan rt foot cellulitis c severe foot pain cultures and gram stain sent and will need b.s. antibiotics and ortho consultation . mri ordered for am . i.v fluids and rule out bacteremia. tetanus vaccine given. pain control
[2019-11-30 12:16] LABS: HEMOGLOBIN A1C 5.8 % (4.50-6.20)
[2019-11-30] MEDS: Vancomycin 1 GM, Vancomycin 250 MG in Sodium Chloride 0.9% 250 ML IV SCH ×2 (13:12→20:52)
[2019-11-30] MEDS ORDERED: Sodium Chloride 3% 250 ML IV ONE (20:15)
[2019-11-30] MEDS: Enoxaparin 40 MG/0.4 ML Syringe SUBCUT SCH (21:15)
[2019-12-01] MEDS: Piperacillin/Tazobactam 4.5 GM in Sodium Chloride 0.9% 100 ML IV SCH ×3 (01:03→17:13)
[2019-12-01] MEDS: Vancomycin 1 GM, Vancomycin 250 MG in Sodium Chloride 0.9% 250 ML IV SCH ×3 (05:11→20:14)
[2019-12-01] MEDS: Acetaminophen/HYDROcodone 325-5 MG Tab PO PRN ×3 (06:02→20:14)
[2019-12-01] MEDS ORDERED: Ketorolac 15 MG/ML SDV IVPUSH PRN (10:20)
--- NOTE | 2019-12-01 14:04 | PCM.PN ---
- General Info Date of Service: 12/01/19 Subjective Update: Slept OK Pain is controlled, worsens when he stands up Tolerating diet BM today - Patient Data Vitals - Most Recent: Last Vital Signs Temp 98.4 F 12/01/19 13:15 Pulse 75 12/01/19 13:15 Resp 20 12/01/19 13:15 BP 135/73 12/01/19 13:15 Pulse Ox 96 12/01/19 13:15 Weight - Most Recent: 107.91 kg - Exam General: Alert, Oriented, Cooperative, No Acute Distress HEENT: Pupils Equal, Pupils Reactive, EOMI, Mucous Membr. Moist/[place] Neck: Supple Lungs: Clear to Auscultation, Normal Respiratory Effort. No: Crackles, Rales, Rhonchi, Rub, Stridor, Wheezing Cardiovascular: Regular Rate, Regular Rhythm. No: Murmurs, Gallops, Rubs GI/Abdominal Exam: Normal Bowel Sounds, Soft, Non-Tender, Distended. No: Guarding, Rigid, Rebound Extremities: Normal Inspection, Normal Range of Motion, Other (mild tenderness with movement of toes, has purulent drainage in btween 3-4th toe, capillary refill is preserved) Wound/Incisions: Drainage, Erythema Neurological: No New Focal Deficit Psy/Mental Status: Alert, Normal Affect, Normal Mood Sepsis Event Note - Evaluation Sepsis Screening Result: No Definite Risk - Problem List & Annotations (1) Cellulitis and abscess of toe of right foot SNOMED Code(s): 680522526 Code(s): L03.031 - CELLULITIS OF RIGHT TOE; L02.611 - CUTANEOUS ABSCESS OF RIGHT FOOT Status: Acute Current Visit: Yes (2) Fungal dermatitis SNOMED Code(s): 71115675 Code(s): B36.9 - SUPERFICIAL MYCOSIS, UNSPECIFIED Status: Acute Priority: Medium Current Visit: Yes Onset Date: ~11/29/19 (3) Leukocytosis SNOMED Code(s): 818283364, 901374277 Code(s): D72.829 - ELEVATED WHITE BLOOD CELL COUNT, UNSPECIFIED Status: Acute Current Visit: Yes (4) Obesity, Class II, BMI 35-39.9 SNOMED Code(s): 014511018040915 Code(s): E66.9 - OBESITY, UNSPECIFIED Status: Acute Current Visit: Yes - Problem List Review Problem List Initiated/Reviewed/Updated: Yes - Assessment Assessment:: Admission 11/29/19 Came to ED with pain swelling and tenderness to his right foot x 5 days Previous ED visit 4 days ago; had leukocytosis and diagnosed with gout Also with erythema on dorsum of foot with purulent drainage between 3-4th toes Pain is worse with palpation or ambulation Started on Vancomycin and Zosyn 11/30/19 Erythema and edema improving, no extension Culture + Gram + cocci and Group A beta streptococcus Vancomycin and Zosyn day 2 MRI negative for osteomyelitis PT consulted for wound care Interdigital spaces with fungal like changes started on Diflucan Leukocytosis improved - Plan Plan:: Cellulitis and abscess of toe of right foot, improved Fungal dermatitis Leukocytosis, improved - Continue Vancomycin and Zosyn - Continue Diflucan - SANGEETA prep - PT for wound care and crutches training - Adjust pain control with Toradol and [place] - Follow up on culture results Obesity, Class II, BMI 35-39.9 - Follow up on A1c - Dietary consult PROPHYLAXIS DVT- Lovenox GI- Not indicated CODE STATUS: FULL CODE DISPOSITION: Patient admitted for purulent cellulitis, getting wound care, improving clinically, pending culture finalization prior to discharge. Follow up with patient advocate
[2019-12-01] MEDS: Enoxaparin 40 MG/0.4 ML Syringe SUBCUT SCH (20:13)
[2019-12-02] MEDS: Piperacillin/Tazobactam 4.5 GM in Sodium Chloride 0.9% 100 ML IV SCH ×2 (01:15→08:30)
[2019-12-02] MEDS: Vancomycin 1 GM, Vancomycin 250 MG in Sodium Chloride 0.9% 250 ML IV SCH ×2 (05:15→12:28)
[2019-12-02] MEDS: Acetaminophen/HYDROcodone 325-5 MG Tab PO PRN ×2 (08:43→14:39)
--- NOTE | 2019-12-02 12:51 | PCM.DCSUM1 ---
Discharge Summary - Hospital Course HPI Initial Comments: Patient is an unfortunate 34-year-old male who presents emergency department today with complaint of pain swelling and tenderness to his right foot. Patient reports that symptoms started 5 days ago he was seen here 4 days ago for same at which time the patient was diagnosed with gout. Patient at that time had a WBC of 13,000, patient reports he has had increasing pain and swelling to the his right foot he has erythema over the dorsum of his right foot and he has purulent drainage between the third and fourth toes in the interdigital space which is foul-smelling at this time, patient reports he does not know if he was stung by an insect but denies any trauma no fever no chills no cough no congestion no shortness of breath patient reports he has pain at rest pain is worse with palpation or ambulation improves with rest but never alleviates Diagnosis: Stroke: No - Discharge Data Discharge Date: 12/02/19 Discharge Disposition: Home, Self-Care 01 Condition: Good - Referral to Home Health Primary Care Physician: PCP None - Discharge Diagnosis/Problem(s) (1) Cellulitis and abscess of toe of right foot SNOMED Code(s): 112802269 ICD Code: L03.031 - CELLULITIS OF RIGHT TOE; L02.611 - CUTANEOUS ABSCESS OF RIGHT FOOT Status: Acute Current Visit: Yes (2) Fungal dermatitis SNOMED Code(s): 69721848 ICD Code: B36.9 - SUPERFICIAL MYCOSIS, UNSPECIFIED Status: Acute Priority: Medium Current Visit: Yes Onset Date: ~11/29/19 (3) Leukocytosis SNOMED Code(s): 126504747, 654599190 ICD Code: D72.829 - ELEVATED WHITE BLOOD CELL COUNT, UNSPECIFIED Status: Acute Current Visit: Yes (4) Obesity, Class II, BMI 35-39.9 SNOMED Code(s): 127457050278736 ICD Code: E66.9 - OBESITY, UNSPECIFIED Status: Acute Current Visit: Yes - Patient Summary/Data Labs Pending at D/C: uric acid level Hospital Course: Admission 11/29/19 Came to ED with pain swelling and tenderness to his right foot x 5 days Previous ED visit 4 days ago; had leukocytosis and diagnosed with gout Also with erythema on dorsum of foot with purulent drainage between 3-4th toes Pain is worse with palpation or ambulation Started on Vancomycin and Zosyn 11/30/19 Erythema and edema improving, no extension Culture + Gram + cocci and Group A beta streptococcus Vancomycin and Zosyn day 2 MRI negative for osteomyelitis PT consulted for wound care Interdigital spaces with fungal like changes started on Diflucan Leukocytosis improved 12/01/19 Still having purulent drainage Antibiotic day 4 PT for crutch training HbA1c 5.4% 12/02/19 Culture + MRSA and group B strep Afebrile Transitioned to Bactrim - Discharge Plan *PRESCRIPTION DRUG MONITORING PROGRAM REVIEWED*: No *COPY OF PRESCRIPTION DRUG MONITORING REPORT IN PATIENT SPRING: No Prescriptions/Med Rec: Sulfamethoxazole/Trimethoprim [Bactrim Ds Tablet] 1 each PO BID #20 tablet Acetaminophen/HYDROcodone [[place] 325-5 MG] 1 tab PO Q8HR PRN #9 tablet PRN Reason: Pain (Moderate 4-6) Home Medications: Home Meds Acetaminophen/HYDROcodone [[place] 325-5 MG] 1 tab PO Q8HR PRN #9 tablet 12/02/19 [Rx] Sulfamethoxazole/Trimethoprim [Bactrim Ds Tablet] 1 each PO BID #20 tablet 12/02/19 [Rx] Oxygen Therapy Mode: Room Air Patient Handouts: Cellulitis, Adult, Sepsis, Diagnosis, Adult Forms: ED Department Discharge Referrals: PCP,None [Primary Care Provider] - - Discharge Summary/Plan Comment DC Time >30 min.: Yes - General Info Date of Service: 12/02/19 Subjective Update: Feeling a lot better Pain is almost resolved, only gets acutely worse with the first step he takes Tolerating diet BM today Ambulating by himself - Patient Data Vitals - Most Recent: Last Vital Signs Temp 99.0 F 12/02/19 11:23 Pulse 72 12/02/19 11:23 Resp 16 12/02/19 11:23 BP 142/108 H 12/02/19 11:23 Pulse Ox 96 12/02/19 11:23 Weight - Most Recent: 105.052 kg - Exam General: Reports: Alert, Oriented, Cooperative, No Acute Distress HEENT: Reports: Pupils Equal, Pupils Reactive, EOMI, Mucous Membr. Moist/[address] Neck: Reports: Supple Lungs: Reports: Clear to Auscultation, Normal Respiratory Effort. Denies: Decreased Breath Sounds, Crackles, Rales, Rhonchi, Rub, Stridor, Wheezing Cardiovascular: Reports: Regular Rate, Regular Rhythm. Denies: Murmurs, Gallops, Rubs GI/Abdominal Exam: Normal Bowel Sounds, Soft, Non-Tender, Distended. No: Guarding, Rigid, Rebound Extremities: Normal Capillary Refill, Other (mild tenderness with movement of toes, has purulent drainage in btween 3-4th toe, capillary refill is preserved, erythema improved) Skin: Reports: Warm Neurological: Reports: No New Focal Deficit
== END 2019-12-02 14:50 | disposition home or self-care (01) | DRG 603 ==
LOC: JD.ED 16:06 → JD.MS 19:43
PROVIDERS: ADMIT Pediatrics; ATTEND Pediatrics
PROC: 3E0234Z Introduction of Serum, Toxoid and Vaccine into Muscle, Percutaneous Approach (ICD-10-PCS; principal; 2019-11-29)
DX: L03.031 Cellulitis of right toe (principal); L02.611 Cutaneous abscess of right foot; B36.9 Superficial mycosis, unspecified; E66.9 Obesity, unspecified; B95.62 Methicillin resistant Staphylococcus aureus infection as the cause of diseases classified elsewhere; Z20.828 Contact with and (suspected) exposure to other viral communicable diseases; B95.1 Streptococcus, group B, as the cause of diseases classified elsewhere; B95.0 Streptococcus, group A, as the cause of diseases classified elsewhere; M21.41 Flat foot [pes planus] (acquired), right foot; M21.42 Flat foot [pes planus] (acquired), left foot; Z79.52 Long term (current) use of systemic steroids; Z23 Encounter for immunization; Z68.37 Body mass index [BMI] 37.0-37.9, adult
CPT/HCPCS: 36415; 73630-26-RT; 73630-RT; 73720-26-RT; 73720-RT; 80048; 80053; 80202; 81003; 83036; 83605; 84550; 85025; 86140; 87040; 87075; 87076; 87077; 87101; 87186; 87205; 87220; 90471; 90715; 93005; 96365; 96367; 97116-GP; 97163-GP; 97530-GP; 99231; 99239; 99284; 99284-25; A9270-GY; A9577; J1650; J2543; J3370; J7050; U0002